=== PATIENT | female | born 1990 | race Two or more races ===

== ENCOUNTER 2022-11-22 20:19 | Emergency (ER) | payer OTHER ==
[~2022-11-22] VITALS: Ht 165.1 cm; Wt 68.0 kg
[2022-11-22] MEDS ORDERED: CLONAZEPAM1 MG PO (21:00)
[2022-11-22] MEDS ORDERED: OLANZAPINE10 MG PO (21:00)
[2022-11-22] MEDS ORDERED: KURVELO-28 TAB1 EAC1 PO (21:00)
[2022-11-22] MEDS ORDERED: RISPERIDONE1 MG PO (21:01)
[2022-11-22] MEDS ORDERED: ABANEU-SL TABL1 EACH SL (21:01)
[2022-11-22] MEDS ORDERED: VITAMIN D3125 MC1 PO (21:01)
[2022-11-22] MEDS ORDERED: LAMICTAL100 MG PO (21:01)
[2022-11-22] MEDS ORDERED: OMEGA-3 FISH O1 EAC6 PO (21:01)
[2022-11-22] MEDS ORDERED: TRAZODONE HCL50 MG PO (21:01)
[2022-11-22] MEDS ORDERED: FLUOXETINE HCL20 MG PO (21:01)
== END 2022-11-23 02:57 | disposition home or self-care (01) ==
LOC: ER 20:19
DX: R53.81 Other malaise (principal); E03.9 Hypothyroidism, unspecified

== ENCOUNTER 2023-01-25 01:31 | Emergency (ER) | payer OTHER ==
[~2023-01-25] VITALS: Ht 170.2 cm; Wt 84.8 kg
[~2023-01-25 01:31] MED LIST: ABANEU-SL TABL1 EACH SL; CLONAZEPAM1 MG PO; FLUOXETINE HCL20 MG PO; KURVELO-28 TAB1 EAC1 PO; LAMICTAL100 MG PO; OLANZAPINE10 MG PO; OMEGA-3 FISH O1 EAC6 PO; RISPERIDONE1 MG PO; TRAZODONE HCL50 MG PO; VITAMIN D3125 MC1 PO
== END 2023-01-25 03:40 | disposition home or self-care (01) ==
LOC: ER 01:31
DX: R10.11 Right upper quadrant pain (principal); K59.00 Constipation, unspecified

== ENCOUNTER 2023-06-09 21:15 | Emergency (ER) | payer OTHER ==
[~2023-06-09] VITALS: Ht 152.4 cm; Wt 94.3 kg
[2023-06-09] MEDS ORDERED: SYNTHROID50 MCG PO (21:33)
[2023-06-09] MEDS ORDERED: CLOZAPINE100 MG PO (21:33)
== END 2023-06-09 22:24 | disposition home or self-care (01) ==
LOC: ER 21:15
DX: R42 Dizziness and giddiness (principal)